=== PATIENT | female | born 1990 | race Caucasian/White ===

== ENCOUNTER 2021-05-18 06:26 | Inpatient (IN) ==
[2021-05-18] MEDS ORDERED: ANCEF VIAL 1 GRAM IVP ONE (06:30)
[2021-05-18] MEDS ORDERED: ANCEF VIAL 1 GRAM ONE (06:38)
[2021-05-18] MEDS ORDERED: LR 1,000 ML IV 1,000 ML IV ONE ×2 (06:39→07:35)
[2021-05-18] MEDS ORDERED: NS 100 ML IV 100 ML ONE (06:39)
[2021-05-18] MEDS ORDERED: PEPCID 20 MG VIAL ONE (06:54)
[2021-05-18] MEDS ORDERED: DILAUDID INJ ONE (06:54)
[2021-05-18] MEDS ORDERED: PITOCIN ONE (06:54)
[2021-05-18] MEDS ORDERED: NEO-SYNEPHRINE INJ ONE (06:56)
[2021-05-18] MEDS ORDERED: EPHEDRINE SULFATE INJ ONE ×2 (06:56→08:23)
[2021-05-18] MEDS: D5 1/2 NS 1,000 ML 1,000 ML IV SCH ×2 (07:00→19:02)
[2021-05-18] MEDS ORDERED: MARCAINE SPINAL ONE (07:18)
[2021-05-18] MEDS ORDERED: DECADRON INJ ONE (07:20)
[2021-05-18] MEDS ORDERED: TORADOL 30 MG VIAL ONE (07:20)
[2021-05-18] MEDS ORDERED: VERSED ONE (08:11)
[2021-05-18] MEDS ORDERED: DIPRIVAN VIAL 20 ML ONE (08:19)
[2021-05-18] MEDS ORDERED: XYLOCAINE 2 % (PLAIN) ONE (08:24)
[2021-05-18] MEDS ORDERED: ZOFRAN INJ 4 MG VIAL ONE (08:24)
[2021-05-18] MEDS ORDERED: OFIRMEV IV 1000 MG VIAL 1,000 MG/100 ML VIAL IV ONE (08:55)
[2021-05-18] MEDS ORDERED: BENADRYL INJ 50 MG VIAL ONE (08:59)
[2021-05-18] MEDS ORDERED: NS IRRIGATION* 500 ML IR ONE (09:11)
[2021-05-18] MEDS ORDERED: REGLAN INJ 10 MG VIAL IVP PRN ×2 (09:16→09:47)
[2021-05-18] MEDS ORDERED: PHENERGAN INJ 25 MG IM PRN (09:16)
[2021-05-18] MEDS ORDERED: ZOFRAN INJ 4 MG VIAL IVP PRN ×2 (09:16→09:47)
[2021-05-18] MEDS ORDERED: DILAUDID INJ IVP PRN (09:16)
[2021-05-18] MEDS ORDERED: TORADOL 30 MG VIAL IVP PRN (09:47)
[2021-05-18] MEDS ORDERED: HYPERRHO S/D (or RHOGAM) IM PRN (09:47)
[2021-05-18] MEDS ORDERED: BENADRYL INJ 50 MG VIAL IVP PRN (09:47)
[2021-05-18] MEDS ORDERED: MYLICON TAB 80 MG CHEW PO PRN (09:47)
[2021-05-18] MEDS ORDERED: PERCOCET TAB 5/325 MG PO PRN ×2 (09:47→16:36)
[2021-05-18] MEDS ORDERED: ADACEL or BOOSTRIX TDaP VACCINE IM ONE (09:47)
[2021-05-18] MEDS ORDERED: NARCAN INJ IVP PRN (09:47)
[2021-05-18] MEDS ORDERED: D5 1/2 NS 1,000 ML 1,000 ML with PITOCIN 20 UNITS IV SCH ×2 (10:00)
[2021-05-18] MEDS: MOTRIN TAB 800 MG PO PRN (17:10)
[2021-05-18] MEDS: COLACE CAP 100 MG PO SCH (21:08)
[2021-05-18] MEDS: MACROBID CAP 100 MG EXT REL PO SCH (21:08)
[2021-05-18] MEDS: BACTROBAN TOPICAL OINT TOP SCH (21:09)
[2021-05-19] MEDS: MOTRIN TAB 800 MG PO PRN (02:53)
[2021-05-19] MEDS: BACTROBAN TOPICAL OINT TOP SCH (05:02)
[2021-05-19 05:06] LABS: HEMATOCRIT 25.9 % (36.0-47.0)
[2021-05-19 05:14] LABS: HEMOGLOBIN 8.6 g/dL (12.0-16.0)
[2021-05-19] MEDS: COLACE CAP 100 MG PO SCH (08:27)
[2021-05-19] MEDS: MACROBID CAP 100 MG EXT REL PO SCH (08:27)
[2021-05-19] MEDS ORDERED: CELEXA PO SCH (09:00)
[2021-05-19] MEDS ORDERED: PRENATAL PLUS PO SCH (09:00)
[2021-05-19 09:17] VITALS: BP 100/58
== END 2021-05-19 10:50 | disposition home or self-care (01) | DRG 784 ==
LOC: LD 06:26 → MED/SURG 09:43
PROVIDERS: ADMIT Specialist; ATTEND Specialist
DX: Z3A.39 39 weeks gestation of pregnancy; O23.40 Unspecified infection of urinary tract in pregnancy, unspecified trimester; O34.211 Maternal care for low transverse scar from previous cesarean delivery; Z01.818 Encounter for other preprocedural examination; N85.8 Other specified noninflammatory disorders of uterus; Z20.822 Contact with and (suspected) exposure to COVID-19; O99.343 Other mental disorders complicating pregnancy, third trimester; N39.0 Urinary tract infection, site not specified; O36.0930 Maternal care for other rhesus isoimmunization, third trimester, not applicable or unspecified; B96.29 Other Escherichia coli [E. coli] as the cause of diseases classified elsewhere; Z01.812 Encounter for preprocedural laboratory examination; Z30.2 Encounter for sterilization; Z37.0 Single live birth

== ENCOUNTER 2023-07-26 06:07 | Inpatient (IN) ==
[2023-07-26] MEDS: NOZIN NASAL SANITIZER TP ONE (06:34)
[2023-07-26] MEDS: D5 1/2 NS 1,000 ML 1,000 ML IV ONE (06:35)
[2023-07-26] MEDS: ANCEF VIAL 1 GRAM ONE (06:35)
[2023-07-26 07:11] VITALS: BMI 33.1
[2023-07-26] MEDS: DECADRON INJ ONE (07:14)
[2023-07-26] MEDS: ZOFRAN INJ 4 MG VIAL ONE (07:14)
[2023-07-26] MEDS: VERSED ONE (07:15)
[2023-07-26] MEDS: TORADOL 30 MG VIAL ONE (07:15)
[2023-07-26] MEDS: PEPCID 20 MG VIAL ONE (07:15)
[2023-07-26] MEDS: NS 100 ML IV 100 ML ONE (07:15)
[2023-07-26] MEDS: ANCEF VIAL 1 GRAM IVP ONE (07:15)
[2023-07-26] MEDS: FENTANYL VIAL INJ 100 mcg ONE (07:15)
[2023-07-26] MEDS ORDERED: ULTANE GAS IN ONE (07:31)
[2023-07-26] MEDS ORDERED: XYLOCAINE 2 % (PLAIN) ONE (07:31)
[2023-07-26] MEDS: BETADINE SOLN ONE (07:31)
[2023-07-26] MEDS: OFIRMEV IV 1000 MG VIAL 1,000 MG/100 ML VIAL IV ONE (07:53)
[2023-07-26] MEDS: BRIDION ONE (07:53)
[2023-07-26] MEDS: DIPRIVAN VIAL 20 ML ONE (07:53)
[2023-07-26] MEDS: TRANSDERM-SCOP TD ONE (07:54)
[2023-07-26] MEDS: ROBINUL ONE (07:54)
[2023-07-26] MEDS: ZEMURON 100 MG VIAL ONE (07:54)
[2023-07-26] MEDS: KETAMINE 50 MG/5 ML-NACL SYRNG ONE (08:07)
[2023-07-26] MEDS: ATROPINE SULFATE ONE (08:08)
[2023-07-26] MEDS: LR 1,000 ML IV 1,000 ML IV ONE (08:12)
[2023-07-26] MEDS ORDERED: DILAUDID INJ IVP PRN (08:17)
[2023-07-26] MEDS ORDERED: ZOFRAN INJ 4 MG VIAL IVP PRN ×2 (08:17→10:27)
[2023-07-26] MEDS ORDERED: BENADRYL INJ 50 MG VIAL IVP PRN (08:17)
[2023-07-26] MEDS ORDERED: BARHEMSYS INJ IVP PRN (08:17)
[2023-07-26] MEDS: ProvayBLUE 0.5% ONE (08:35)
[2023-07-26] MEDS: HESPAN IV IN NS 500 ML IV ONE (08:53)
[2023-07-26] MEDS: DILAUDID INJ ONE (09:13)
[2023-07-26] MEDS ORDERED: NARCAN INJ IVP PRN (10:27)
[2023-07-26] MEDS ORDERED: NS IRRIGATION* 1,000 ML ONE (10:59)
[2023-07-26] MEDS ORDERED: STERILE WATER IRRIGATION IR ONE (10:59)
[2023-07-26] MEDS ORDERED: MORPHINE SULFATE INJ 2 MG INJ ONE (13:10)
[2023-07-26] MEDS: MORPHINE SULFATE PCA 30 MG IVP PRN (13:24)
[2023-07-26] MEDS: D5 1/2 NS 1,000 ML 1,000 ML IV SCH (13:25)
[2023-07-27 04:41] LABS: BASOPHILS % (AUTO) 0.4 % (0.2-1.0); EOSINOPHILS % (AUTO) 0.4 % (0.9-2.9); HEMATOCRIT 27.4 % (36.0-47.0); HEMOGLOBIN 8.8 g/dL (12.0-16.0); LYMPHOCYTES # (AUTO) 1.8 X10^3/uL (1.3-2.9); LYMPHOCYTES % (AUTO) 26.9 % (21.0-51.0); MEAN CORPUSCULAR HEMOGLOBIN 23.2 pg (27.0-34.0); MEAN CORPUSCULAR HGB CONC 32.1 g/dL (33.0-35.0); MEAN CORPUSCULAR VOLUME 72.1 fL (80.0-100.0); MEAN PLATELET VOLUME 8.1 fL (7.4-11.0); MONOCYTES # (AUTO) 0.6 x10^3/uL (0.3-0.8); MONOCYTES % (AUTO) 9.7 % (0.0-13.0); NEUTROPHILS # (AUTO) 4.1 x10^3/uL (2.2-4.8); NEUTROPHILS % (AUTO) 62.6 % (42.0-75.0); PLATELET COUNT 210 X10^3/uL (150.0-450.0); RED CELL DISTRIBUTION WIDTH 16.1 % (11.6-16.5); WHITE BLOOD COUNT 6.5 X10^3/uL (3.6-10.0)
[2023-07-27 04:52] LABS: BLOOD UREA NITROGEN 10 mg/dL (7-18); CALCIUM 7.3 mg/dL (8.5-10.1); CARBON DIOXIDE 29.2 mmol/L (21-32); CHLORIDE 106 mmol/L (98-107); COR NA(FOR HYPERGLY) 141 mmol/L (136-145); CREATININE 0.71 mg/dL (0.55-1.02); GLUCOSE 122 mg/dL (65-99); POTASSIUM 3.5 mmol/L (3.5-5.1); SODIUM 140 mmol/L (136-145); eGFR NON BLACK RACES > 60 (>60)
[2023-07-27 04:57] LABS: HYPOCHROMASIA 1+; MICROCYTOSIS SLIGHT; PLATELET MORPHOLOGY COMMENT NORMAL (NORMAL)
[2023-07-27] MEDS ORDERED: CONSULT PHARMACY - POTASSIUM & MAGNESIUM XX SCH (09:00)
[2023-07-27] MEDS ORDERED: LEXAPRO ONE (09:01)
[2023-07-27] MEDS: K-DUR TAB 20 MEQ PO SCH (09:40)
[2023-07-27] MEDS: COLACE CAP 100 MG PO SCH (09:40)
[2023-07-27] MEDS: LEXAPRO PO SCH (09:40)
[2023-07-27] MEDS ORDERED: TORADOL 30 MG VIAL IVP PRN (09:42)
[2023-07-27] MEDS: MOTRIN TAB 800 MG PO PRN (11:45)
[2023-07-27] MEDS: BACTROBAN TOPICAL OINT TOP SCH (14:20)
[2023-07-27] MEDS: PERCOCET TAB 5/325 MG PO PRN (14:32)
[2023-07-28 04:42] VITALS: RESP 20
[2023-07-28] MEDS: ULTANE GAS IN ONE (07:29)
[2023-07-28] MEDS: MORPHINE SULFATE INJ 2 MG INJ IVP ONE (07:29)
[2023-07-28] MEDS: MORPHINE SULFATE PCA 30 MG ONE (07:29)
[2023-07-28] MEDS: MORPHINE SULFATE INJ 10 MG ONE (07:30)
[2023-07-28] MEDS: NS 25 ML IV 25 ML ONE (07:31)
[2023-07-28] MEDS ORDERED: LEXAPRO ONE (08:24)
[2023-07-28 10:19] VITALS: BP 107/73; PULSE 70; TEMP 98.1; O2SAT 100
== END 2023-07-28 09:15 | disposition home or self-care (01) | DRG 743 ==
LOC: MED/SURG 06:07
PROVIDERS: ADMIT Specialist; ATTEND Specialist
DX: N94.19 Other specified dyspareunia; N92.0 Excessive and frequent menstruation with regular cycle; R10.2 Pelvic and perineal pain